=== PATIENT | female | born 1935 | race Two or more races ===

== ENCOUNTER 2020-10-04 23:57 | Emergency (ER) | payer MEDICARE, OTHER ==
[~2020-10-04] VITALS: Ht 160 cm; Wt 65.3 kg
--- NOTE | 2020-10-05 00:29 | NUR ---
BIBRA 909 FOR C/O BILATERAL KNEE PAIN AND FACIAL TRAUMA S/P TRIP AND FALL WHILE WALKING HER DOG. NOTED W/ SWOLLEN NOSE AND BROKEN UPPER FRONT TEETH. PT REPORTED NO KO. ALERT AND OX4 , RESPONSIVE TO ALL QUESTIONS, PT WAS TRANSFERRED TO BED 4 AND PLACED ON A MONITOR ,WILL CONT TO MONITOR ,
--- NOTE | 2020-10-05 01:32 | NUR ---
BACK FROM CT
--- NOTE | 2020-10-05 02:33 | NUR ---
[facility] CALLED FOR TRANSPORT. ETA 07
--- NOTE | 2020-10-05 02:35 | NUR ---
CALLED [facility] AND SPOKE TO ADILENE REGARDING PT'S CONDITION AND DISCHARGE
--- NOTE | 2020-10-05 03:18 | NUR ---
PER PT, SON IN LAW WILL PICK HER UP.
[2020-10-05] MEDS ORDERED: TRAMADOL HCL 50 MG TABLET PO ONE (03:30)
[2020-10-05] MEDS ORDERED: TRAMADOL HCL 50 MG TABLET ONE (03:32)
--- NOTE | 2020-10-05 03:34 | NUR ---
Patient discharged to home in stable condition. Written and verbal after care instructions given. Patient verbalizes understanding of instruction and RX. Pt ambulated with steady gait. vss.
[2020-10-05 05:04] VITALS: BP 134/76
== END 2020-10-05 05:04 | disposition home or self-care (01) ==
LOC: EDBD 23:59 → ER 23:59
DX: S02.5XXA Fracture of tooth (traumatic), initial encounter for closed fracture (principal); S80.02XA Contusion of left knee, initial encounter; S80.01XA Contusion of right knee, initial encounter; S00.33XA Contusion of nose, initial encounter; S00.83XA Contusion of other part of head, initial encounter; S00.12XA Contusion of left eyelid and periocular area, initial encounter; R51.9 Headache, unspecified; I10 Essential (primary) hypertension; Z98.890 Other specified postprocedural states; W01.198A Fall on same level from slipping, tripping and stumbling with subsequent striking against other object, initial encounter; Y93.89 Activity, other specified; Y92.89 Other specified places as the place of occurrence of the external cause; Y99.8 Other external cause status
CPT/HCPCS: 70450-TC; 70486-TC; 72125-TC; 73564-TC

== ENCOUNTER 2023-02-01 22:27 | Emergency (ER) | payer MEDICARE, BC ==
[~2023-02-01] VITALS: Ht 165.1 cm; Wt 63.5 kg
--- NOTE | 2023-02-01 22:50 | NUR ---
BIBRA39. DIZZYNESS AND FELT SHE WAS OING TO FALL THEN SAT ON THE BED. ELEVATED BP 10/99mmHg. PATIENT IS AAOX4. ABLE TO MAKE NEEDS KNOWN. WITH BOUTS OF FORGETFULNESS. PLACED COMFORTABLY IN BED. VITALS CHECKED.
--- NOTE | 2023-02-01 23:07 | NUR ---
URINE SPECIMEN SENT TO LAB
--- NOTE | 2023-02-01 23:08 | NUR ---
EKG DONE AT BEDSIDE
[2023-02-01 23:35] LABS: BASOPHILS % (AUTO) 0.3 % (0.0-2.0); EOSINOPHILS % (AUTO) 1.7 % (0.0-6.0); HEMATOCRIT 41 % (33-45); HEMOGLOBIN 13.7 g/dL (11.5-14.8); LYMPHOCYTES # (AUTO) 0.9 K/uL (0.8-4.8); LYMPHOCYTES % (AUTO) 15.4 % (20.0-44.0); MEAN CORPUSCULAR HGB CONC 33 g/dl (31.0-36.0); MEAN CORPUSCULAR VOLUME 89 fL (82-100); MONOCYTES # (AUTO) 0.3 K/uL (0.1-1.30); NEUTROPHILS # (AUTO) 4.4 K/uL (1.8-8.9); NEUTROPHILS % (AUTO) 76.6 % (43.0-81.0); PLATELET COUNT (AUTO) 232 K/uL (150-450); RED BLOOD CELL COUNT(AUTO) 4.65 MIL/uL (4.0-5.2); WHITE BLOOD COUNT (AUTO) 5.8 K/uL (4.3-11.0)
[2023-02-01 23:37] LABS: BILIRUBIN,URINE NEGATIVE (NEGATIVE); LEUKOCYTE ESTERASE ,URINE NEGATIVE (NEGATIVE); NITRITE, URINE NEGATIVE (NEGATIVE); PH,URINE 6.5 (5.0-8.0); PROTEIN,URINE NEGATIVE (NEGATIVE); UGLUCOSE NEGATIVE (NEGATIVE); UROBILINOGEN,URINE 0.2 EU/dL (0.2)
[2023-02-01 23:44] LABS: COLOR,URINE LIGHT YELLOW (YELLOW)
[2023-02-02 00:07] LABS: BACTERIA,URINE None seen /HPF (None Seen); SQUAMOUS EPITHELIAL CELL,UR Few /HPF (None Seen); WBC,URINE NONE SEEN /HPF (0-3)
[2023-02-02 00:08] LABS: ALANINE AMINOTRANSFERASE 23 U/L (12-78); ALBUMIN 4.1 g/dL (3.4-5.0); ALKALINE PHOSPHATASE 109 U/L (46-116); ASPARTATE AMINOTRANSFERASE 16 U/L (15-37); BILIRUBIN,DIRECT 0.1 mg/dL (0.0-0.2); BILIRUBIN,TOTAL 0.2 mg/dL (0.2-1.0); CARBON DIOXIDE 32 mmol/L (21-32); CHLORIDE 99 mmol/L (98-107); CREATININE 1.1 mg/dL (0.6-1.3); GLUCOSE 105 mg/dL (74-106); POTASSIUM 3.3 mmol/L (3.5-5.1); SODIUM SERUM 138 mmol/L (136-145); TOTAL PROTEIN, SERUM 7.4 g/dL (6.4-8.2); UREA NITROGEN, BLOOD 18 mg/dL (7-18)
[2023-02-02 00:43] VITALS: BP 164/97
--- NOTE | 2023-02-02 02:04 | NUR ---
[facility] CALLED FOR BLS TRANSPORT. ETA 75-90 MINUTES.
--- NOTE | 2023-02-02 02:40 | NUR ---
PATIENT FOR DISCHARGE. WAITING FOR TRANSPORTATION
--- NOTE | 2023-02-02 02:47 | NUR ---
REPORT GIVEN TO [facility] EMT PHYLICIA.
--- NOTE | 2023-02-02 02:55 | NUR ---
IV NICK REMOVED
--- NOTE | 2023-02-02 02:56 | NUR ---
Patient discharged to home in stable condition. Written and verbal after care instructions given. Patient verbalizes understanding of instruction.
--- NOTE | 2023-02-02 03:01 | NUR ---
TRIED CALLING [facility]. NO [employer] IS PICKING UP PHONE FOR REPORT
== END 2023-02-02 03:03 | disposition home or self-care (01) ==
LOC: ER 22:43
DX: R42 Dizziness and giddiness (principal); I10 Essential (primary) hypertension; F41.9 Anxiety disorder, unspecified; Z85.3 Personal history of malignant neoplasm of breast; Z98.890 Other specified postprocedural states
CPT/HCPCS: 36415; 70450-TC; 71045-TC; 80048-TC; 80076-TC; 81001; 84484-TC; 85025-TC; 85730-TC

== ENCOUNTER 2024-06-24 08:10 | Inpatient (IN) | payer MEDICARE, BC ==
[~2024-06-24] VITALS: Ht 165.1 cm; Wt 66.8 kg
[2024-06-24] MEDS ORDERED: ONDANSETRON HCL/PF 4 MG/2 ML VIAL ONE (08:30)
[2024-06-24] MEDS ORDERED: MORPHINE SULFATE INJ 4 MG/ML DISP.SYRIN ONE (08:30)
[2024-06-24] MEDS: IV NS 0.9% 500 ML BAG IV ONE (08:31)
[2024-06-24] MEDS: MORPHINE SULFATE INJ 2 MG/ML DISP.SYRIN IV ONE (08:31)
[2024-06-24] MEDS: ONDANSETRON HCL/PF 4 MG/2 ML VIAL IVP ONE (08:32)
[2024-06-24 08:49] LABS: BASOPHILS % (AUTO) 0.4 % (0.0-2.0); EOSINOPHILS # (AUTO) 0.4 K/uL (0.0-0.7); EOSINOPHILS % (AUTO) 3.4 % (0.0-6.0); HEMATOCRIT 32 % (33-45); HEMOGLOBIN 10.5 g/dL (11.5-14.8); LYMPHOCYTES # (AUTO) 0.7 K/uL (0.8-4.8); LYMPHOCYTES % (AUTO) 6.2 % (20.0-44.0); MEAN CORPUSCULAR HEMOGLOBIN 26 PG (26.0-33.0); MEAN CORPUSCULAR HGB CONC 33 g/dl (31.0-36.0); MEAN CORPUSCULAR VOLUME 79 fL (82-100); MONOCYTES # (AUTO) 0.5 K/uL (0.1-1.30); NEUTROPHILS # (AUTO) 9.3 K/uL (1.8-8.9); PLATELET COUNT (AUTO) 293 K/uL (150-450); RED BLOOD CELL COUNT(AUTO) 3.99 MIL/uL (4.0-5.2); RED CELL DISTRIBUTION WIDTH 14.3 % (11.5-15.0); WHITE BLOOD COUNT (AUTO) 10.9 K/uL (4.3-11.0)
[2024-06-24 08:54] LABS: CALCIUM, SERUM 9.2 mg/dL (8.5-10.1); CARBON DIOXIDE 24 mmol/L (21-32); CHLORIDE 99 mmol/L (98-107); GLUCOSE 116 mg/dL (74-106); POTASSIUM 3.2 mmol/L (3.5-5.1); SODIUM SERUM 138 mmol/L (136-145); UREA NITROGEN, BLOOD 17 mg/dL (7-18)
[2024-06-24] MEDS ORDERED: PANT40TA49 PO (09:35)
[2024-06-24] MEDS ORDERED: BUPR-54 PO (09:35)
[2024-06-24] MEDS ORDERED: MAGN400O6 PO (09:35)
[2024-06-24] MEDS ORDERED: IBUP-1955 PO (09:35)
[2024-06-24] MEDS ORDERED: DONE5TAB34 PO (09:35)
[2024-06-24] MEDS ORDERED: ALPR0.255 PO (09:35)
[2024-06-24] MEDS ORDERED: AMLO-213 PO (09:35)
[2024-06-24] MEDS ORDERED: LISI40TA13 PO (09:35)
[2024-06-24] MEDS ORDERED: LOPE2CAP PO (09:35)
[2024-06-24] MEDS ORDERED: FERR325T23 PO (09:35)
[2024-06-24] MEDS ORDERED: MAG-135 PO (09:35)
[2024-06-24] MEDS ORDERED: HYDR-500 PO (09:35)
[2024-06-24] MEDS ORDERED: MULT1TAB70 PO (09:35)
[2024-06-24] MEDS ORDERED: CHLO25TA2 PO (09:35)
[2024-06-24] MEDS ORDERED: BISA10SU11 RC (09:35)
[2024-06-24] MEDS ORDERED: DOCU100C36 PO (09:35)
[2024-06-24] MEDS ORDERED: ALPRAZOLAM 0.25 MG TABLET PO PRN (10:00)
[2024-06-24] MEDS ORDERED: ONDANSETRON HCL/PF 4 MG/2 ML VIAL IVP PRN (10:00)
[2024-06-24] MEDS ORDERED: Z GUARD REMEDY 4 OZ OINT TP PRN (10:00)
[2024-06-24] MEDS ORDERED: MAGNESIUM HYDROXIDE 30 ML UDC PO PRN ×2 (10:00)
[2024-06-24] MEDS ORDERED: ZOLPIDEM TARTRATE 5 MG TABLET PO PRN (10:00)
[2024-06-24] MEDS ORDERED: MAG HYDROX/AL HYDROX/SIMETH 30 ML UDC PO PRN (10:00)
[2024-06-24 10:15] VITALS: BP 139/80; TEMP 97.7; O2SAT 95
[2024-06-24] MEDS: HYDROMORPHONE 1 MG/1 ML DISP.SYRIN IV PRN (11:14)
[2024-06-24] MEDS: IV NS 0.9% 1,000 ML IV PRN (12:40)
[2024-06-24] MEDS: POTASSIUM CHLORIDE 20 MEQ TAB.PRT.SR PO SCH (13:18)
[2024-06-24] MEDS: ENSURE ENLIVE CHOC 237 ML CAN PO SCH (13:20)
[2024-06-24 13:34] LABS: INR 1.09 (0.91-1.10); PROTHROMBIN TIME 11.5 SECS (9.2-11.1)
[2024-06-24 16:00] VITALS: BP 140/83; TEMP 98.6; O2SAT 90
[2024-06-24] MEDS: DOCUSATE SODIUM 100 MG CAPSULE PO SCH (16:52)
[2024-06-24] MEDS: HYDROCODONE/APAP 10/325MG TABLET PO PRN (17:58)
[2024-06-24 20:00] VITALS: BP 134/73; TEMP 97.9; O2SAT 94
[2024-06-24] MEDS: DONEPEZIL 5 MG TABLET PO SCH (22:29)
[2024-06-25 07:00] VITALS: BP 146/78; TEMP 97.9; O2SAT 94
[2024-06-25 07:08] LABS: BASOPHILS % (AUTO) 0.2 % (0.0-2.0); EOSINOPHILS # (AUTO) 0.6 K/uL (0.0-0.7); EOSINOPHILS % (AUTO) 4.3 % (0.0-6.0); HEMATOCRIT 30 % (33-45); HEMOGLOBIN 9.6 g/dL (11.5-14.8); LYMPHOCYTES # (AUTO) 0.7 K/uL (0.8-4.8); LYMPHOCYTES % (AUTO) 5.1 % (20.0-44.0); MEAN CORPUSCULAR HEMOGLOBIN 26 PG (26.0-33.0); MEAN CORPUSCULAR HGB CONC 33 g/dl (31.0-36.0); MEAN CORPUSCULAR VOLUME 80 fL (82-100); MONOCYTES # (AUTO) 0.7 K/uL (0.1-1.30); MONOCYTES % (AUTO) 5.6 % (2.0-12.0); NEUTROPHILS # (AUTO) 11.2 K/uL (1.8-8.9); NEUTROPHILS % (AUTO) 84.8 % (43.0-81.0); PLATELET COUNT (AUTO) 269 K/uL (150-450); RED CELL DISTRIBUTION WIDTH 13.9 % (11.5-15.0); WHITE BLOOD COUNT (AUTO) 13.2 K/uL (4.3-11.0)
[2024-06-25] MEDS: PANTOPRAZOLE 40 MG TABLET.DR PO SCH (08:55)
[2024-06-25] MEDS: MULTIVITAMINS,THERAGRAN 1 UDTAB TABLET PO SCH (08:55)
[2024-06-25] MEDS: FERROUS SULFATE (325 MG) 325 MG/TAB TABLET PO SCH (08:55)
[2024-06-25] MEDS: BUPROPION XL 150 MG TAB.ER.24 PO SCH (08:55)
[2024-06-25] MEDS: AMLODIPINE BESYLATE 10 MG TABLET PO SCH (08:56)
[2024-06-25] MEDS: LISINOPRIL (20MG) 20 MG TABLET PO SCH (08:56)
[2024-06-25] MEDS ORDERED: Medication Not On Formulary EA (Chlorthalidone 12.5 MG) PO SCH (09:00)
[2024-06-25 09:19] LABS: IRON, SERUM 12 ug/dl (50-175); TOTAL IRON BINDING CAPACITY 250 ug/dl (250-450)
[2024-06-25 09:46] LABS: FERRITIN 106 ng/mL (8-388)
[2024-06-25 11:21] LABS: CALCIUM, SERUM 8.9 mg/dL (8.5-10.1); CARBON DIOXIDE 23 mmol/L (21-32); CHLORIDE 105 mmol/L (98-107); CREATININE 0.7 mg/dL (0.6-1.3); GLUCOSE 106 mg/dL (74-106); MAGNESIUM 1.9 mg/dL (1.8-2.4); PHOSPHORUS 2.9 mg/dL (2.5-4.9); POTASSIUM 3.5 mmol/L (3.5-5.1); SODIUM SERUM 143 mmol/L (136-145); UREA NITROGEN, BLOOD 18 mg/dL (7-18)
[2024-06-25 13:36] LABS: INR 1.1 (0.91-1.10); PARTIAL THROMBOPLASTIN TIME 32.5 SEC (24.3-34.3); PROTHROMBIN TIME 11.6 SECS (9.2-11.1)
[2024-06-25] MEDS: HYDROMORPHONE 1 MG/1 ML DISP.SYRIN IV ONE (14:17)
[2024-06-25 16:00] VITALS: BP 156/82; TEMP 97.7; O2SAT 97
[2024-06-25 20:00] VITALS: BP_SYST 129; BP_DIAS 105; BP_DIAS 85; TEMP 97.6; O2SAT 98
[2024-06-25] MEDS: ACETAMINOPHEN 325 MG TABLET PO PRN (20:03)
[2024-06-26 02:59] LABS: APPEARANCE,URINE CLEAR (CLEAR); BILIRUBIN,URINE NEGATIVE (NEGATIVE); BLOOD, URINE 1+ Ery/uL (NEGATIVE); COLOR,URINE DARK YELLOW (YELLOW); KETONES,URINE TRACE mg/dL (NEGATIVE); LEUKOCYTE ESTERASE ,URINE NEGATIVE (NEGATIVE); NITRITE, URINE POSITIVE (NEGATIVE); PROTEIN,URINE NEGATIVE (NEGATIVE); UGLUCOSE NEGATIVE (NEGATIVE); UROBILINOGEN,URINE 0.2 EU/dL (0.2)
[2024-06-26 03:01] LABS: ADD URINE CULTURE YES; BACTERIA,URINE Few /HPF (None Seen); SQUAMOUS EPITHELIAL CELL,UR Few /HPF (None Seen)
[2024-06-26 04:31] VITALS: BP 143/71; TEMP 97.9; O2SAT 99
[2024-06-26] MEDS ORDERED: TRANEXAMIC ACID 1,000 MG/10 ML VIAL ONE (05:27)
[2024-06-26] MEDS ORDERED: ANESTHESIA TRAY IN PYXIS 1 EA TRAY MC ONE (05:27)
[2024-06-26] MEDS ORDERED: BUPIVACAINE 0.25% 75 MG/30 ML VIAL ONE (05:27)
[2024-06-26] MEDS ORDERED: POLYMYXIN B SULFATE 500,000 UNITS ONE (05:27)
[2024-06-26] MEDS: POTASSIUM CL. PREMIX PERIPHER. 50 ML IV SCH (06:00)
[2024-06-26] MEDS: POTASSIUM CL. PREMIX PERIPHER. 50 ML ONE (06:01)
[2024-06-26] MEDS ORDERED: ROCURONIUM BROMIDE 50 MG/5 ML ONE (06:04)
[2024-06-26] MEDS ORDERED: FENTANYL PF 250MCG/5ML AMPUL ONE (06:48)
[2024-06-26 10:04] LABS: BASOPHILS % (AUTO) 0.2 % (0.0-2.0); EOSINOPHILS # (AUTO) 0.5 K/uL (0.0-0.7); EOSINOPHILS % (AUTO) 3.3 % (0.0-6.0); HEMATOCRIT 28 % (33-45); HEMOGLOBIN 9.1 g/dL (11.5-14.8); LYMPHOCYTES # (AUTO) 0.6 K/uL (0.8-4.8); LYMPHOCYTES % (AUTO) 3.8 % (20.0-44.0); MEAN CORPUSCULAR HEMOGLOBIN 26 PG (26.0-33.0); MEAN CORPUSCULAR HGB CONC 32 g/dl (31.0-36.0); MEAN CORPUSCULAR VOLUME 82 fL (82-100); MONOCYTES # (AUTO) 0.6 K/uL (0.1-1.30); NEUTROPHILS # (AUTO) 14.1 K/uL (1.8-8.9); NEUTROPHILS % (AUTO) 88.7 % (43.0-81.0); PLATELET COUNT (AUTO) 247 K/uL (150-450); RED BLOOD CELL COUNT(AUTO) 3.48 MIL/uL (4.0-5.2); RED CELL DISTRIBUTION WIDTH 14.5 % (11.5-15.0); WHITE BLOOD COUNT (AUTO) 15.9 K/uL (4.3-11.0)
[2024-06-26 10:28] LABS: CALCIUM, SERUM 8.3 mg/dL (8.5-10.1); CARBON DIOXIDE 25 mmol/L (21-32); CHLORIDE 106 mmol/L (98-107); CREATININE 0.7 mg/dL (0.6-1.3); GLUCOSE 112 mg/dL (74-106); POTASSIUM 3.6 mmol/L (3.5-5.1); SODIUM SERUM 142 mmol/L (136-145); UREA NITROGEN, BLOOD 17 mg/dL (7-18)
[2024-06-26] MEDS: SOD FERRIC GLUC 125 MG in IV NS 0.9% 100 ML IV SCH (14:36)
[2024-06-26 16:00] VITALS: BP 134/74; TEMP 98.4; O2SAT 97
[2024-06-26] MEDS: ANCEF 1 GM/50 ML D5W IV SCH (16:10)
[2024-06-26] MEDS ORDERED: ALTEPLASE CATHFLO 2 MG/VIAL XX ONE (19:00)
[2024-06-26 20:00] VITALS: BP 171/146; TEMP 99.5; O2SAT 94
[2024-06-26 21:00] VITALS: BP 135/75; TEMP 97.3; O2SAT 98
[2024-06-26] MEDS: hydrOXYzine PAMOATE 25 MG CAPSULE PO PRN (22:08)
[2024-06-27 08:00] VITALS: BP 150/79; TEMP 99.7; O2SAT 91
[2024-06-27] MEDS: ENOXAPARIN SODIUM 40 MG/0.4 ML DISP.SYRIN SQ SCH (09:26)
[2024-06-27 09:43] LABS: BASOPHILS % (AUTO) 0.3 % (0.0-2.0); EOSINOPHILS # (AUTO) 0.4 K/uL (0.0-0.7); EOSINOPHILS % (AUTO) 3.4 % (0.0-6.0); HEMATOCRIT 28 % (33-45); HEMOGLOBIN 8.9 g/dL (11.5-14.8); LYMPHOCYTES # (AUTO) 0.7 K/uL (0.8-4.8); LYMPHOCYTES % (AUTO) 5.3 % (20.0-44.0); MEAN CORPUSCULAR HEMOGLOBIN 26 PG (26.0-33.0); MEAN CORPUSCULAR HGB CONC 32 g/dl (31.0-36.0); MEAN CORPUSCULAR VOLUME 81 fL (82-100); MONOCYTES # (AUTO) 0.8 K/uL (0.1-1.30); NEUTROPHILS # (AUTO) 10.9 K/uL (1.8-8.9); PLATELET COUNT (AUTO) 242 K/uL (150-450); RED BLOOD CELL COUNT(AUTO) 3.39 MIL/uL (4.0-5.2); RED CELL DISTRIBUTION WIDTH 14.6 % (11.5-15.0); WHITE BLOOD COUNT (AUTO) 12.8 K/uL (4.3-11.0)
[2024-06-27 09:56] LABS: CALCIUM, SERUM 8.1 mg/dL (8.5-10.1); CARBON DIOXIDE 28 mmol/L (21-32); CHLORIDE 104 mmol/L (98-107); CREATININE 0.7 mg/dL (0.6-1.3); GLUCOSE 104 mg/dL (74-106); UREA NITROGEN, BLOOD 12 mg/dL (7-18)
[2024-06-27 10:01] LABS: SODIUM SERUM 143 mmol/L (136-145)
[2024-06-27 10:05] LABS: POTASSIUM 2.8 mmol/L (3.5-5.1)
[2024-06-27] MEDS: POTASSIUM CHLORIDE 20 MEQ TAB.PRT.SR PO ONE (11:03)
[2024-06-27 16:05] VITALS: BP 142/97; TEMP 98.2; O2SAT 90
[2024-06-27 20:00] VITALS: BP 157/89; TEMP 98.4; O2SAT 92
[2024-06-28 07:30] VITALS: BP 156/87; TEMP 99.5; O2SAT 93
[2024-06-28 10:22] LABS: BASOPHILS % (AUTO) 0.3 % (0.0-2.0); EOSINOPHILS # (AUTO) 0.4 K/uL (0.0-0.7); EOSINOPHILS % (AUTO) 2.8 % (0.0-6.0); HEMATOCRIT 28 % (33-45); HEMOGLOBIN 9.2 g/dL (11.5-14.8); LYMPHOCYTES # (AUTO) 0.7 K/uL (0.8-4.8); LYMPHOCYTES % (AUTO) 5.1 % (20.0-44.0); MEAN CORPUSCULAR HEMOGLOBIN 26 PG (26.0-33.0); MEAN CORPUSCULAR HGB CONC 33 g/dl (31.0-36.0); MEAN CORPUSCULAR VOLUME 81 fL (82-100); MONOCYTES # (AUTO) 0.9 K/uL (0.1-1.30); MONOCYTES % (AUTO) 6.2 % (2.0-12.0); NEUTROPHILS # (AUTO) 12.3 K/uL (1.8-8.9); NEUTROPHILS % (AUTO) 85.6 % (43.0-81.0); PLATELET COUNT (AUTO) 322 K/uL (150-450); RED BLOOD CELL COUNT(AUTO) 3.52 MIL/uL (4.0-5.2); RED CELL DISTRIBUTION WIDTH 14.8 % (11.5-15.0); WHITE BLOOD COUNT (AUTO) 14.4 K/uL (4.3-11.0)
[2024-06-28 10:45] LABS: CALCIUM, SERUM 8.7 mg/dL (8.5-10.1); CARBON DIOXIDE 28 mmol/L (21-32); CHLORIDE 103 mmol/L (98-107); CREATININE 0.6 mg/dL (0.6-1.3); GLUCOSE 115 mg/dL (74-106); POTASSIUM 3.2 mmol/L (3.5-5.1); SODIUM SERUM 142 mmol/L (136-145); UREA NITROGEN, BLOOD 13 mg/dL (7-18)
[2024-06-28] MEDS: POTASSIUM CHLORIDE 20 MEQ TAB.PRT.SR PO SCH (13:01)
[2024-06-28 16:00] VITALS: BP 142/82; TEMP 98.1; O2SAT 92
[2024-06-28 20:00] VITALS: BP 136/73; TEMP 98.7; O2SAT 100
[2024-06-29 08:00] VITALS: BP 124/76; TEMP 98; O2SAT 96
[2024-06-29 08:27] VITALS: BP 124/76
[2024-06-29] MEDS: CEFTRIAXONE 1 G in IV D5W 50 ML IV SCH (08:40)
[2024-06-29 10:41] LABS: BASOPHILS # (AUTO) 0.1 K/uL (0.0-0.2); BASOPHILS % (AUTO) 0.6 % (0.0-2.0); EOSINOPHILS # (AUTO) 0.6 K/uL (0.0-0.7); EOSINOPHILS % (AUTO) 4.4 % (0.0-6.0); HEMATOCRIT 27 % (33-45); HEMOGLOBIN 8.6 g/dL (11.5-14.8); LYMPHOCYTES # (AUTO) 0.7 K/uL (0.8-4.8); LYMPHOCYTES % (AUTO) 5.1 % (20.0-44.0); MEAN CORPUSCULAR HEMOGLOBIN 26 PG (26.0-33.0); MEAN CORPUSCULAR HGB CONC 32 g/dl (31.0-36.0); MEAN CORPUSCULAR VOLUME 82 fL (82-100); MONOCYTES # (AUTO) 0.8 K/uL (0.1-1.30); MONOCYTES % (AUTO) 5.9 % (2.0-12.0); NEUTROPHILS # (AUTO) 11.3 K/uL (1.8-8.9); PLATELET COUNT (AUTO) 236 K/uL (150-450); RED BLOOD CELL COUNT(AUTO) 3.32 MIL/uL (4.0-5.2); RED CELL DISTRIBUTION WIDTH 14.7 % (11.5-15.0); WHITE BLOOD COUNT (AUTO) 13.4 K/uL (4.3-11.0)
[2024-06-29 10:55] LABS: CALCIUM, SERUM 8.4 mg/dL (8.5-10.1); CARBON DIOXIDE 23 mmol/L (21-32); CHLORIDE 105 mmol/L (98-107); CREATININE 0.5 mg/dL (0.6-1.3); GLUCOSE 114 mg/dL (74-106); POTASSIUM 3.5 mmol/L (3.5-5.1); SODIUM SERUM 139 mmol/L (136-145); UREA NITROGEN, BLOOD 17 mg/dL (7-18)
== END 2024-06-29 17:15 | DRG 521 ==
LOC: ER 08:14 → MED 09:52
PROVIDERS: ADMIT Nurse Practitioner Acute Care; ATTEND Internal Medicine
PROC: 0SRR0JZ Replacement of Right Hip Joint, Femoral Surface with Synthetic Substitute, Open Approach (ICD-10-PCS; principal; 2024-06-26)
DX: S72.031A Displaced midcervical fracture of right femur, initial encounter for closed fracture (principal); G93.41 Metabolic encephalopathy; W18.30XA Fall on same level, unspecified, initial encounter; E87.6 Hypokalemia; F03.90 Unspecified dementia, unspecified severity, without behavioral disturbance, psychotic disturbance, mood disturbance, and anxiety; R29.6 Repeated falls; D63.8 Anemia in other chronic diseases classified elsewhere; I10 Essential (primary) hypertension; Y92.9 Unspecified place or not applicable; Z85.3 Personal history of malignant neoplasm of breast; M85.80 Other specified disorders of bone density and structure, unspecified site; D72.829 Elevated white blood cell count, unspecified; Z96.659 Presence of unspecified artificial knee joint; R79.89 Other specified abnormal findings of blood chemistry
CPT/HCPCS: 36415; 71045-TC; 72170-TC; 73501; 73502; 80048-TC; 81001; 82728-TC; 83540-TC; 83735-TC; 84100-TC; 85025-TC; 85610-TC; 85730-TC; 86850-TC; 87086-TC; 93307-TC; 97110-TC; 97530-TC; A4217; A4223; C1776; G0378; J0690; J0696; J1170; J1650; J2270; J2310; J2405; J2916; J3010; J3480; J3490; J7030; J7042; J7060; Q0177